=== PATIENT | female | born 1935 | race Two or more races ===

== ENCOUNTER 2019-05-05 12:19 | Outpatient (CLI) | payer MEDICARE, MEDICAID | END 2019-05-05 23:59 | disposition home or self-care (01) | LOC: RAD 12:19 | PROVIDERS: ATTEND Legal Medicine | DX: I10 Essential (primary) hypertension (principal); R90.82 White matter disease, unspecified | CPT/HCPCS: 70450-TC; 71100-TC; 73030-TC; 73090-TC; 73100-TC; 73620-TC ==

== ENCOUNTER 2023-04-25 14:38 | Emergency (ER) | payer MEDICARE, OTHER ==
[~2023-04-25] VITALS: Ht 157.5 cm; Wt 68.9 kg
[2023-04-25 14:51] VITALS: TEMP 98.7
[2023-04-25] MEDS ORDERED: IBUPROFEN 600 MG TABLET ONE (15:04)
[2023-04-25] MEDS: IBUPROFEN 600 MG TABLET PO ONE (15:07)
[2023-04-25 17:20] VITALS: BP 126/74; O2SAT 100
== END 2023-04-25 17:20 | disposition home or self-care (01) ==
LOC: ER 14:52
DX: M25.562 Pain in left knee (principal); I10 Essential (primary) hypertension; Z88.5 Allergy status to narcotic agent; Z88.8 Allergy status to other drugs, medicaments and biological substances; W01.0XXA Fall on same level from slipping, tripping and stumbling without subsequent striking against object, initial encounter; Y93.89 Activity, other specified; Y92.89 Other specified places as the place of occurrence of the external cause; Y99.8 Other external cause status
CPT/HCPCS: 73564-TC